=== PATIENT | male | born 1975 | race African-American/Black ===

== ENCOUNTER 2020-05-25 23:37 | Observation (INO) ==
[2020-05-26 00:25] LABS: Basophils # 0.1 10*3/uL (0.0-0.2); Eosinophils # 0.3 10*3/uL (0.0-0.87); Eosinophils % 4.9 % (0.00-10.9); Hematocrit 38.1 VOL% (42.0-52.0); Hemoglobin 12.9 GM/DL (14.0-18.0); Immature Granulocytes % 0.2 %; Immature Granulocytes Absolute 0.01 #; Lymphocytes # 2.3 10*3/uL (1.4-4.0); Lymphocytes % 44.9 % (21.2-54.2); Mean Corpuscular HGB Conc 33.9 GM/DL (32-36); Mean Platelet Volume 9.5 FL (9.6-12.0); Monocytes % 11.9 % (1.7-12.7); Neutrophils % 37.1 % (38.7-73.9); Platelet Count 253 T/CUMM (130-400); Red Blood Count 4.33 MC/CUMM (3.8-5.5); Red Cell Distribution Width 11.9 % (9.3-17.3); White Blood Count 5.1 T/CUMM (4-12)
[2020-05-26 00:39] LABS: Bilirubin,Total 0.6 MG/DL (0.2-1.0); Calcium 8.9 MG/DL (8.5-10.1); Osmolality,Calculated 280.3 MOS/KG (273-304)
[2020-05-26] MEDS ORDERED: NITROGLYCERIN SL 0.4 MG TABLET SL STA (01:11)
[2020-05-26] MEDS ORDERED: ASPIRIN 325 MG TABLET PO STA (01:11)
[2020-05-26 01:23] LABS: Eosinophils 7 % (0-10); Lymphocytes 50 % (20-55); Platelet Estimate Normal; Segmented Neutrophils 35 % (50-85); Total Cells Counted 100
[2020-05-26] MEDS ORDERED: ACETAMINOPHEN 325 MG TABLET PO PRN (01:34)
[2020-05-26] MEDS ORDERED: DEXTROSE 50% 25 GM/50 ML VIAL IV PRN (01:34)
[2020-05-26] MEDS ORDERED: GLUCAGON 1 MG VIAL IM PRN (01:34)
[2020-05-26] MEDS ORDERED: ONDANSETRON 4 MG/2 ML VIAL IV PRN (01:34)
[2020-05-26] MEDS ORDERED: NITROGLYCERIN SL 0.4 MG TABLET SL PRN (01:34)
[2020-05-26 03:23] LABS: Risk Ratio 7.21; VLDL CHOLESTEROL 68.8 MG/DL
[2020-05-26 07:29] LABS: Troponin I < 0.015 NG/ML (0.00-0.045)
[2020-05-26] MEDS: LEVOTHYROXINE 25 MCG TABLET PO SCH (10:16)
[2020-05-26 19:20] LABS: Barbiturates Screen,Urine Negative (Negative); Benzodiazepines Screen,Urine Negative (Negative); Cannabinoid Screen,Urine Negative (Negative); Opiate Screen,Urine Positive (Negative); Phencyclidine Screen,Urine Negative (Negative)
[2020-05-27] MEDS: LEVOTHYROXINE 25 MCG TABLET PO SCH (06:11)
[2020-05-27] MEDS ORDERED: ASPIRIN EC 325 MG TABLET PO SCH (09:00)
[2020-05-27] MEDS ORDERED: FENOFIBRATE 145 MG TABLET PO SCH (09:43)
[2020-05-27 12:18] VITALS: BP 110/75
== END 2020-05-27 14:12 | disposition home or self-care (01) ==
LOC: N.EDINP 23:37 → N.ED 23:37 → SUATTDRO 05-26 01:34 → N.TELES 05-26 02:03
PROVIDERS: ADMIT Internal Medicine; ATTEND Internal Medicine

== ENCOUNTER 2020-08-21 01:03 | Observation (INO) ==
[2020-08-21 01:34] LABS: Basophils # 0.1 10*3/uL (0.0-0.2); Basophils % 1.3 % (0.0-0.8); Eosinophils # 0.2 10*3/uL (0.0-0.87); Eosinophils % 4.3 % (0.00-10.9); Hematocrit 39.3 VOL% (42.0-52.0); Hemoglobin 13.5 GM/DL (14.0-18.0); Immature Granulocytes % 0.2 %; Immature Granulocytes Absolute 0.01 #; Lymphocytes # 2.2 10*3/uL (1.4-4.0); Mean Corpuscular HGB Conc 34.4 GM/DL (32-36); Mean Corpuscular Volume 85.8 FL (87-102); Neutrophils % 38.2 % (38.7-73.9); Platelet Count 254 T/CUMM (130-400); Red Blood Count 4.58 MC/CUMM (3.8-5.5); Red Cell Distribution Width 12.3 % (9.3-17.3); White Blood Count 4.7 T/CUMM (4-12)
[2020-08-21] MEDS ORDERED: MORPHINE 4 MG/1 ML VIAL IV STA (01:35)
[2020-08-21] MEDS ORDERED: ASPIRIN 325 MG TABLET PO STA (01:35)
[2020-08-21] MEDS ORDERED: ONDANSETRON 4 MG/2 ML VIAL IV STA (01:35)
[2020-08-21] MEDS ORDERED: ALUM/MAG/SIMETH/LIDO VISC 1:1 30 ML BOTTLE PO STA (01:35)
[2020-08-21] MEDS ORDERED: NITROGLYCERIN 2% OINT 1 INCH/GM PACK TOP STA (01:35)
[2020-08-21 02:01] LABS: Albumin 3.9 G/DL (3.4-5.0); Bilirubin,Total 0.6 MG/DL (0.2-1.0); Calcium 8.9 MG/DL (8.5-10.1); Osmolality,Calculated 284.1 MOS/KG (273-304); Total Protein 6.9 G/DL (6.4-8.3)
[2020-08-21 02:26] LABS: Eosinophils 4 % (0-10); Lymphocytes 49 % (20-55); Segmented Neutrophils 36 % (50-85); Total Cells Counted 100
[2020-08-21 02:29] LABS: INR 1.1; PT Patient Result 12.1 SECS (9.8-11.9)
[2020-08-21 02:33] LABS: Hypochromasia 1+; Platelet Estimate Normal; Reactive Lymphocytes 2+
[2020-08-21] MEDS ORDERED: MORPHINE 4 MG/1 ML VIAL IV PRN (03:28)
[2020-08-21] MEDS ORDERED: ONDANSETRON 4 MG/2 ML VIAL IV PRN (03:28)
[2020-08-21] MEDS ORDERED: DEXTROSE 50% 25 GM/50 ML VIAL IV PRN (03:28)
[2020-08-21] MEDS ORDERED: GLUCAGON 1 MG VIAL IM PRN (03:28)
[2020-08-21] MEDS ORDERED: DEXTROSE 50% 25 GM/50 ML SYRINGE IV PRN (03:48)
[2020-08-21 04:42] LABS: Risk Ratio 4.77; VLDL CHOLESTEROL 24.4 MG/DL
[2020-08-21] MEDS ORDERED: ENOXAPARIN 40 MG/0.4 ML SYRINGE SUBCUT SCH (06:00)
[2020-08-21 07:43] LABS: Bilirubin,Urine Negative (Negative); Blood, Urine Negative (Negative); Glucose,Urine (UA) Negative (Negative); Ketones,Urine Negative (Negative); Mucus,Urine Occasional /LPF (Occasional); Nitrite,Urine Negative (Negative); Protein,Urine Negative; Urine Appearance CLEAR (Clear); Urine Color Yellow (Yellow); Urine Specific Gravity 1.017 (1.001-1.035); WBC,Urine <1 /HPF (0-6)
[2020-08-21] MEDS ORDERED: ASPIRIN EC 81 MG TABLET PO SCH (09:00)
[2020-08-21] MEDS ORDERED: INFLUENZA VIRUS VACCINE 0.5 ML SYRINGE IM ONE (09:00)
[2020-08-21] MEDS ORDERED: FENOFIBRATE 145 MG TABLET PO SCH (09:00)
[2020-08-21] MEDS ORDERED: PANTOPRAZOLE 40 MG TABLET PO SCH (09:00)
[2020-08-21] MEDS ORDERED: OLMESARTAN 20 MG TABLET PO SCH (09:00)
[2020-08-21 09:06] LABS: Barbiturates Screen,Urine Negative (Negative); Benzodiazepines Screen,Urine Negative (Negative); Cannabinoid Screen,Urine Negative (Negative); Opiate Screen,Urine Positive (Negative); Phencyclidine Screen,Urine Negative (Negative)
[2020-08-21 11:57] VITALS: BP 133/81
[2020-08-22] MEDS ORDERED: LEVOTHYROXINE 25 MCG TABLET PO SCH (06:30)
== END 2020-08-21 15:02 | disposition home or self-care (01) ==
LOC: N.ED 01:03 → N.EDINP 01:03 → N.TELES 04:20
PROVIDERS: ADMIT Internal Medicine; ATTEND Internal Medicine